=== PATIENT | female | born 1970 | race Caucasian/White ===

== ENCOUNTER 2023-01-22 10:46 | Outpatient (CLI) | payer OTHER, SELFPAY ==
[2023-01-22 11:32] LABS: Hematocrit 40.8 % (37.0-47.0); Hemoglobin 13.2 g/dL (12.0-15.0); Mean Corpuscular HGB Conc 32.4 g/dl (32-36); Mean Corpuscular Hemoglobin 30.9 pg (26-34); Mean Corpuscular Volume 95.6 fl (80-100); Mean Platelet Volume 9.1 fl (7.4-10.4); Platelet Count Result 243 k/mm3 (150-375); Red Blood Count 4.27 M/mm3 (4.2-5.4); White Blood Count 8.3 K/mm3 (4.5-10.0)
[2023-01-22 11:44] LABS: Albumin Level 4.4 g/dL (3.5-5.1); Anion Gap 5 mmol/L (8-16); Blood Urea Nitrogen 16 mg/dL (7-17); Calcium 8.6 mg/dL (8.4-10.2); Carbon Dioxide 31 mmol/L (22-30); Chloride 100 mmol/L (98-107); Estimated Glomerular Filt Rate > 60; Glucose 84 mg/dL (65-110); Potassium 4.3 mmol/L (3.4-5.0); Sodium 136 mmol/L (137-145)
[2023-01-22 11:52] LABS: Prealbumin 20.6 mg/dL (17.6-36.0)
[2023-01-22 12:22] LABS: Iron 92 ug/dL (37-170)
[2023-01-26 12:55] LABS: Vitamin B1 14 nmol/L (8-30)
== END 2023-01-22 10:47 | disposition home or self-care (01) ==
LOC: ANHLAB 10:47
PROVIDERS: PCP Internal Medicine; Visit Provider Surgery Plastic and Reconstructive Surgery
DX: R63.4 Abnormal weight loss (principal)
CPT/HCPCS: 36415; 80048; 82040; 83540; 84134; 84425; 85027

== ENCOUNTER 2023-01-30 05:43 | Day surgery (SDC) | payer OTHER, SELFPAY ==
[2023-01-13 14:17] VITALS: BMI 24.5
--- NOTE | 2023-01-29 10:27 | P.PNAN_ITS ---
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 [facility] Surgical History Surgical History (Updated 01/29/23 @ 10:28 by Jus Duggan DO) History of gastric bypass 2021 Social History Social History Smoking packs per day: 1 Smoking cigarettes per day: 20.0 Years smoked: 25 Smoking pack-years: 25.00 Smoking status: Former smoker Tobacco type: cigarettes Second hand tobacco smoke exposure: Yes Smoking end date: 11/18/22 Alcohol intake: never Drinks per week: 1 Substance use: never Substance use type: does not use Living arrangements: with family Spiritual care concerns: No Anes - Eval Final PreProcedure Day of Procedure 01/29/23 10:27 Patient weight: normal Heart: regular rate and rhythm Lungs: clear to auscultation Airway: Mallampati scale class II Neurological: alert and oriented Last oral intake: >/= 8 hours ASA classification: II Emergent: no Anesthetic plan: proceed Anesthesia type and monitoring: general ETT and standard monitoring Results Review: All pre-operative results and documents have been reviewed as part of the pre- operative evaluation. Informed Consent: The patient's anesthetic plan and its attendant risks and benefits were discussed with the patient/family/POA. Questions were solicited and answers provided to the satisfaction of the patient/family/POA.
[2023-01-30] VITALS (10 sets, daily range): BP systolic 113–138; BP diastolic 74–86; PULSE 69–84; RESP 13–17; TEMP 36.4; O2SAT 96–100
[2023-01-30] MEDS: LACTATED RINGERS 1,000 ML 30 ML IV CONT ×2 (07:00→10:11)
--- NOTE | 2023-01-30 07:00 | WPDHPUPDATE1 ---
History and Physical Update Update Date/Time: 01/30/23 07:00 History and Physical has been reviewed, including an updated exam of the patient. There are NO changes in the patient's condition. Risks, benefits, and alternatives have been discussed and questions answered. Patient agrees to proceed with procedure.
--- NOTE | 2023-01-30 07:18 | W.PM.PROC2 ---
Procedure Note - Detailed Date of Procedure 01/30/23 Pre-op Diagnosis Micromastia and Breast Ptosis Post-op Diagnosis Same Procedure Performed Bilateral augmentation mastopexy with Galaflex Surgeon Christian Salomon MD Anesthesia General Findings Inverted T Superior pedicle Mateo Mckeon SoftTouch 605 cc Right - REF# [id number] SN [id number] Left - REF# [id number] SN [id number] Galalfex REF [id number] Description of Procedure She is here today for bilateral breast augmentation mastopexy. Previously and again today the risks, benefits, alternatives were discussed in extensive detail. I wanted her to be very realistic about the risks involved as well as expectations. We discussed aftercare and what to monitor for. Made sure answered all of her questions to her satisfaction today and consent was obtained. Marked in the preoperative holding area with their verification. The patient was taken to the operating room placed supine on the operating table. Anesthesia was provided by anesthesiology. A surgical time-out was taken. We cleansed the skin and 1% lidocaine and 0.25% Marcaine with epinephrine was used anesthetize as a field block. She was prepped and draped in a standard sterile fashion. Tegaderm nipple Gordon were placed. A 15 blade used to make an incision just superior to the inframammary fold leaving a cusp of de-epithelized tissue at the t junction. Dissection was continued until the chest wall as identified. I incised the pectoralis major along its inferior border and completely released the inferior border leaving the medial border intact. I created a subpectoral pocket in the appropriate dimensions based on our preoperative planning for the implant. I then copiously irrigated with saline solution and verified a strict hemostasis. Next the use a triple antibiotic and Betadine containing solution to irrigate the pocket. I washed my gloves with the triple antibiotic and Betadine solution. We washed the implant immediately upon opening it with this solution and only opened it when we needed it. I used implant funnel and no-touch technique. The implant was introduced into the pocket using the funnel. Having verified positioning of the implant this was closed using 2-0 PDS. I tailor tacked the breast into position. Placed her in a sitting position. Verified the nipple-areolar location based on preoperative planning as well as intraoperative observations and measurements in full agreement. She was placed supine. I de-epithelialized the pedicle. I then removed the inferior central portion of the breast need making sure the implant was well protected. I elevated medial and lateral tissue flaps as well for planned closure. Galaflex was soaking on the back table in a betdine solution. It was trimmed and sutured into place with 3-0 Vicryl. I closed along the IMF with 2-0 Stratafix. Along the vertical with 2-0 PDS. I closed around the areola with 3-0 strata fix. 3-0 Monocryl along the vertical. 3-0 Stratafix along the IMF. I finally closed everything with running subcuticular 4-0 Monocryl and tissue glue. Fluffs and surgical bra were placed. Estimated Blood Loss 50 Drains No Packing No Pathology None sent Complications No immediate complications Condition Stable Disposition PACU
--- NOTE | 2023-01-30 07:22 | SUR.PREOP ---
Pt marked by Dr. Salomon in pre-op. Female staff member present in room during marking.
[2023-01-30] MEDS: ceFAZolin SODIUM 2 GM/20 ML SW SYRINGE IV PUSH (07:34)
[2023-01-30] MEDS: SCOPOLAMINE 1.5 MG PATCH 1 MG TRANSDERM (07:35)
--- NOTE | 2023-01-30 07:36 | SUR.PREOP ---
500cc fluid bolus given in pre-op per Dr. Salomon's orders.
[2023-01-30] MEDS: TRANEXAMIC ACID 1,000 MG/10 ML AMPUL 1000 MG IV PUSH (07:41)
[2023-01-30] MEDS: LIDO 1%/EPINEPHRINE/PF 1:200,000 30 ML VIAL INFILTRATE (07:42)
[2023-01-30] MEDS: NACL 0.9% IRRIG POUR BOTTLE 900 ML, GENTAMICIN SULFATE INJ 160 MG, ceFAZolin 2 GM, POVI... IRRIGATION (08:11)
[2023-01-30] MEDS: oxyCODONE HCL (*CRX) 5 MG TAB IR PO (11:16)
--- NOTE | 2023-01-30 16:34 | WPDANESPN ---
Anes - Prog Note Post-Op Date/Time: 01/30/23 16:34 Cardiovascular status: normal Respiratory status: normal Airway patency: baseline Mental status: baseline Post-Op hydration status: normal Vital Signs: Last Vital Signs Temp 36.4 C L 01/30/23 10:10 Pulse 78 01/30/23 11:50 Resp 16 01/30/23 11:50 BP 119/75 01/30/23 11:50 Pulse Ox 98 01/30/23 11:50 O2 Del Method Room Air 01/30/23 11:50 O2 Flow Rate 2 01/30/23 10:20 Pain Score (VAS): 2 I/O: Intake & Output 01/30/23 01/30/23 01/30/23 07:59 15:59 23:59 Intake Total 1100 Balance 1100 Post-procedural complaints: none Patient Feedback: Patient satisfied with anesthetic care. Other Findings: Patient vital signs back to baseline. Patient denies nausea and vomiting. Patient's pain under control. Patient OK for discharge.
== END 2023-01-30 12:00 | disposition home or self-care (01) ==
PROVIDERS: PCP Internal Medicine; Visit Provider Surgery Plastic and Reconstructive Surgery
PROC: (CPT 19325; principal; 2023-01-30 07:30)
PROC: (CPT 19316; 2023-01-30 07:30)
DX: N64.82 Hypoplasia of breast (principal); N64.81 Ptosis of breast
CPT/HCPCS: 19325